=== PATIENT | male | born 1995 | race African-American/Black ===

== ENCOUNTER 2025-05-24 15:43 | Emergency (ER) | payer BC ==
[2025-05-24] MEDS ORDERED: Sodium Chloride 0.9% 10 ML Syringe FLUSH PRN (15:56)
[2025-05-24 16:11] LABS: BASOPHILS ABSOLUTE AUTO 0.02 K/uL (0.00-0.20); BASOPHILS PERCENT AUTO 0.5 % (0.0-2.0); EOSINOPHILS ABSOLUTE AUTO 0.09 K/uL (0.00-0.50); EOSINOPHILS PERCENT AUTO 2.1 % (0.0-5.0); IMMATURE GRAN ABSOLUTE AUTO 0.01 10^3/uL (0.00-0.04); IMMATURE GRAN PERCENT AUTO 0.2 % (0.0-0.4); LYMPHOCYTES ABSOLUTE AUTO 2.06 K/uL (0.50-3.50); LYMPHOCYTES PERCENT AUTO 48.1 % (10.0-50.0); MONOCYTES ABSOLUTE AUTO 0.35 K/uL (0.00-1.00); MONOCYTES PERCENT AUTO 8.2 % (2.0-14.0); NEUTROPHILS ABSOLUTE AUTO 1.75 K/uL (1.40-7.00); NEUTROPHILS PERCENT AUTO 40.9 % (45.0-80.0); PLATELET COUNT,PLT 215 K/uL (150-350); RED BLOOD CELL COUNT 5.58 M/uL (4.33-5.41); RED CELL DISTRIBUTION WIDTH 12.6 % (11.2-14.1); WHITE BLOOD CELL COUNT,WBC 4.3 K/uL (4.0-10.2)
[2025-05-24 16:32] LABS: ALANINE AMINOTRANSFERASE,ALT 22.0 U/L (12-78); ASPARTATE AMNIOTRANSFERASE,AST 22.0 U/L (15-37); BILIRUBIN TOTAL 0.7 mg/dL (0.2-1.0); BLOOD UREA NITROGEN,BUN 18.0 mg/dL (7-18); CARBON DIOXIDE,CO2 27.9 mmol/L (21.0-32.0); CHLORIDE,CL 102.0 mmol/L (98-107); CREATININE 1.31 mg/dL (0.51-1.17); EST CRCL DRUG DOSING (CG) 72.38 mL/min; ESTIMATED GFR 76.0 mL/min (>=60); GLUCOSE RANDOM 127.0 mg/dL (70-99); INR 1.0 (0.9-1.1); POTASSIUM,K 3.7 mmol/L (3.5-5.1); PROTEIN TOTAL,TP 7.8 g/dL (6.4-8.2); SODIUM,NA 138.0 mmol/L (136-145)
[2025-05-24] MEDS: Lidocaine 2% Viscous Solution 15 ML UD PO ONE (16:41)
[2025-05-24] MEDS: Aluminum Hydroxide/Magnesium Hydroxide/Simethicone Susp 30 ML Cup PO ONE (16:41)
== END 2025-05-24 17:55 | disposition home or self-care (01) ==
LOC: LL.ED 15:43
DX: R07.89 Other chest pain (principal); I10 Essential (primary) hypertension; Z79.899 Other long term (current) drug therapy
CPT/HCPCS: 36415; 71046; 80053; 83735; 84484; 85025; 85379; 85610; 93005; 93010; 99284; 99285; A9270-GY